=== PATIENT | male | born 1950 | race Caucasian/White ===

== ENCOUNTER 2019-07-10 16:03 | Outpatient (CLI) | payer MEDICARE, OTHER ==
--- NOTE | 2019-07-10 16:17 | RAD ---
2 view chest: [07/10/2019] Comparison:None available HISTORY: Dyspnea FINDINGS: Heart and mediastinal contours are grossly unremarkable. No pneumothorax or pleural fluid. No focal consolidation or alveolar edema. IMPRESSION: No acute findings.
== END 2019-07-10 16:04 | disposition home or self-care (01) ==
LOC: BICRAD 16:03
PROVIDERS: ATTEND Internal Medicine Pulmonary Disease
DX: R06.00 Dyspnea, unspecified (principal)
CPT/HCPCS: 71046

== ENCOUNTER 2019-07-26 09:08 | Outpatient (CLI) | payer MEDICARE, OTHER ==
[2019-07-26 10:13] LABS: Estimated GFR-MDRD - POC Greater than 90
--- NOTE | 2019-07-26 14:00 | MRI ---
MULTI PARAMETRIC MRI OF THE PELVIS (PROSTATE) WITH AND WITHOUT IV CONTRAST WITH REVIEW ON INDEPENDENT 3-D WORKSTATION: HISTORY: Elevated PSA COMPARISON: None FINDINGS: PROSTATE: The prostate gland measures 6.3 x 4.7 x 6.4 cm with a volume of 99 cc. PERIPHERAL ZONE: No focal abnormal areas of restricted diffusion is seen to suggest malignant process . TRANSITIONAL ZONE: No lentiform area of abnormally decreased T2 signal is seen to suggest a malignant process. No focal arterial enhancing mass is seen. Prostatic capsule is intact. The seminal vesicles are intact. LYMPH NODES: No lymphadenopathy is seen. SOFT TISSUES: Pelvic sidewall is normal. No abnormality of the visualized rectum is seen. BONES: No abnormal areas of signal replacement on the T1-weighted sequences are seen to suggest osseo us metastatic disease. IMPRESSION: PI-RADS 2: Low (clinically significant prostate cancer is unlikely to be present). This exam was interpreted in consultation with Dr. Maxx Enriquez who concurs.
== END 2019-07-26 09:09 | disposition home or self-care (01) ==
LOC: TBSIIMAG 09:08
PROVIDERS: ATTEND Urology
DX: R97.20 Elevated prostate specific antigen [PSA] (principal)
CPT/HCPCS: 72197; 82565

== ENCOUNTER 2020-10-10 16:16 | Outpatient (CLI) | payer MEDICARE, OTHER | END 2020-10-10 16:17 | disposition home or self-care (01) | LOC: BICRAD 16:16 | PROVIDERS: ATTEND Family Medicine | DX: R07.9 Chest pain, unspecified (principal); M25.512 Pain in left shoulder; M19.012 Primary osteoarthritis, left shoulder | CPT/HCPCS: 71045; 71046 ==

== ENCOUNTER 2022-12-03 14:47 | Outpatient (CLI) | payer MEDICARE | END 2022-12-03 14:48 | disposition home or self-care (01) | LOC: BICRAD 14:47 | PROVIDERS: ATTEND Family Medicine | DX: R06.2 Wheezing (principal); J32.4 Chronic pansinusitis; G44.009 Cluster headache syndrome, unspecified, not intractable; R91.1 Solitary pulmonary nodule | CPT/HCPCS: 36415; 70220; 71046; 84153 ==

== ENCOUNTER 2022-12-30 15:37 | Outpatient (CLI) | payer MEDICARE | END 2022-12-30 15:38 | disposition home or self-care (01) | LOC: RAD 15:37 | PROVIDERS: ATTEND Family Medicine | DX: R93.89 Abnormal findings on diagnostic imaging of other specified body structures (principal); J32.4 Chronic pansinusitis; J45.909 Unspecified asthma, uncomplicated; J98.4 Other disorders of lung | CPT/HCPCS: 71046 ==

== ENCOUNTER 2023-04-12 13:39 | Outpatient (CLI) | payer MEDICARE | END 2023-04-12 13:40 | disposition home or self-care (01) | LOC: RAD 13:39 | PROVIDERS: ATTEND Internal Medicine Critical Care Medicine | DX: R06.00 Dyspnea, unspecified (principal) | CPT/HCPCS: 71046 ==

== ENCOUNTER 2024-06-29 14:28 | Outpatient (CLI) | payer MEDICARE | END 2024-06-29 14:29 | disposition home or self-care (01) | LOC: BICRAD 14:28 | PROVIDERS: ATTEND Family Medicine | DX: J18.9 Pneumonia, unspecified organism (principal); J45.909 Unspecified asthma, uncomplicated; M54.2 Cervicalgia; M47.812 Spondylosis without myelopathy or radiculopathy, cervical region | CPT/HCPCS: 70220; 71046; 72040 ==